=== PATIENT | male | born 1955 | race African-American/Black ===

== ENCOUNTER 2016-10-22 11:44 | Emergency (ER) | payer MEDICARE, MEDICAID ==
[~2016-10-22] VITALS: Ht 177.8 cm; Wt 88.0 kg
[~2016-10-22 11:44] MED LIST: ALBU18HF2 IH; ALLO100T PO; BUPR-43 PO; CLON2TAB4 PO; FLUT1DIS3 IH; METF10002 PO; NITR0.4T49 SL; PREG150C PO; ROSU20TA PO; TRAZ-132 PO
[2016-10-22] MEDS ORDERED: ACETAMINOPHEN 500MG TABLET PO ONE (18:00)
[2016-10-22 19:33] VITALS: BP 131/74
== END 2016-10-22 19:33 | disposition home or self-care (01) ==
LOC: ER 11:44
DX: S16.1XXA Strain of muscle, fascia and tendon at neck level, initial encounter (principal); S46.811A Strain of other muscles, fascia and tendons at shoulder and upper arm level, right arm, initial encounter; R10.84 Generalized abdominal pain; J44.9 Chronic obstructive pulmonary disease, unspecified; E11.9 Type 2 diabetes mellitus without complications; V43.52XA Car driver injured in collision with other type car in traffic accident, initial encounter; Y93.89 Activity, other specified; Y92.89 Other specified places as the place of occurrence of the external cause; Y99.8 Other external cause status; Z98.890 Other specified postprocedural states
CPT/HCPCS: 74000; 99283; 99284